=== PATIENT | female | born 1985 | race Caucasian/White ===

== ENCOUNTER 2016-10-01 09:07 | Observation (INO) | payer MEDICAID ==
[~2016-10-01] VITALS: Ht 165.1 cm; Wt 73.5 kg
[2016-10-01] MEDS ORDERED: SODIUM CHLORIDE 0.9% 1,000 ML IV SCH (10:00)
[2016-10-01] MEDS ORDERED: FERR-63 PO (10:15)
[2016-10-01] MEDS ORDERED: OCD MT (10:15)
[2016-10-01] MEDS ORDERED: PREN-88 PO (10:15)
[2016-10-01] MEDS ORDERED: FOLI-43 PO (10:15)
[2016-10-01 10:57] LABS: CLARITY URINE CLEAR (CLEAR); COLOR URINE YELLOW (YELLOW); GLUCOSE URINE NEGATIVE (NEGATIVE); KETONES URINE NEGATIVE (NEGATIVE); LEUKOCYTE ESTERASE URINE NEGATIVE (NEGATIVE); NITRITE URINE NEGATIVE (NEGATIVE); OCCULT BLOOD URINE NEGATIVE (NEGATIVE); PROTEIN URINE NEGATIVE (NEGATIVE); SPECIFIC GRAVITY URINE 1.012 (1.005-1.030); UROBILINOGEN URINE 0.2 E.U./dL (0.2-1.0)
== END 2016-10-01 11:30 | disposition home or self-care (01) ==
LOC: L&D 09:07
PROVIDERS: ADMIT Specialist; ATTEND Specialist
DX: O26.893 Other specified pregnancy related conditions, third trimester (principal); O23.43 Unspecified infection of urinary tract in pregnancy, third trimester; R10.31 Right lower quadrant pain; Z3A.33 33 weeks gestation of pregnancy
CPT/HCPCS: 81003; 96360; 96361; 99281; G0378; J7030